=== PATIENT | female | born 1990 | race Caucasian/White ===

== ENCOUNTER 2020-05-29 21:26 | Emergency (ER) | payer OTHER ==
[~2020-05-29] VITALS: Ht 172.7 cm; Wt 106.1 kg
[2020-05-29 21:37] VITALS: Ht 172.7 cm; Wt 106.1 kg
[2020-05-30 00:28] LABS: BASOPHIL % 0.7 % (0.2-1.3); PLATELET COUNT 333 x10^3mcL (179-408); RED CELL DISTRIBUTION WIDTH 14.3 % (12.3-17.7)
[2020-05-30 06:45] VITALS: BP 110/84
== END 2020-05-30 06:45 | disposition home or self-care (01) ==
LOC: ED 21:26
PROVIDERS: Emergency Medicine
DX: Z33.2 Encounter for elective termination of pregnancy (principal); Z88.5 Allergy status to narcotic agent
CPT/HCPCS: J3010